=== PATIENT | female | born 1940 | race Caucasian/White ===

== ENCOUNTER 2020-01-13 11:40 | Inpatient (IN) ==
[2020-01-13] MEDS ORDERED: Triamcinolone Acet 0.1% CRM 80 GM Tube TP PRN (16:12)
[2020-01-13] MEDS ORDERED: Triamcinolone Acet 0.1% CRM 15 GM TUBE TP PRN (16:45)
[2020-01-13] MEDS: Latanoprost 2.5 ML BOTTLE BOTH EYES SCH (18:31)
[2020-01-13] MEDS: Levothyroxine 25 MCG TABLET PO SCH (20:53)
[2020-01-13] MEDS: Doxycycline 100 MG CAPSULE PO SCH (20:53)
[2020-01-13] MEDS: Ammonium Lactate 30 APPL/225 GM BOTTLE TP SCH (20:54)
[2020-01-13] MEDS: Magnesium Oxide 400 MG TABLET PO SCH (20:54)
[2020-01-14 06:32] LABS: Basophils % 0.3 %; Eosinophils # 0.3 K/mcL (0.0-0.6); Eosinophils % 5.9 %; Hematocrit 34.2 % (35.3-44.9); Hemoglobin 11.7 g/dL (11.5-15.4); Lymphocytes # 2.2 K/mcL (0.6-4.6); Mean Corpuscular HGB Conc 34.2 g/dL (31.6-35.5); Mean Corpuscular Hemoglobin 29.7 pg (28.0-33.3); Mean Corpuscular Volume 86.8 fL (83.0-100.0); Mean Platelet Volume 9.6 fL (9.4-12.4); Monocytes # 0.4 K/mcL (0.0-1.3); Monocytes % 7.3 %; Neutrophils # 2.7 K/mcL (1.6-8.9); Platelet Count 254 K/mcL (140-400); Red Blood Count 3.94 M/mcL (3.82-4.97); Red Cell Distribution Width 14.8 % (11.5-14.5); Segmented Neutrophils % 47.5 %; White Blood Count 5.7 K/mcL (4.3-11.1)
[2020-01-14 06:54] LABS: BUN/Creatinine Ratio 5 (6-26); Blood Urea Nitrogen 3 mg/dL (8-23); Calcium 8.8 mg/dL (8.6-10.3); Carbon Dioxide 29 mEq/L (23-29); Chloride 100 mEq/L (98-107); Glucose 80 mg/dL (70-105); Osmolality,Calculated 272 (280-300); Potassium 4.7 mEq/L (3.5-5.1); Sodium 133 mEq/L (136-145); eGFR For African Americans > 60 (> 60); eGFR For Non-African Americans > 60 (> 60)
[2020-01-14] MEDS ORDERED: FOLIC ACID PO SCH (09:00)
[2020-01-14] MEDS ORDERED: [UNRECOGNIZED DRUG - OTHER] PO SCH (09:00)
[2020-01-14] MEDS ORDERED: MULTIVITAMIN PO SCH (09:00)
[2020-01-14] MEDS ORDERED: BIOTIN PO SCH (09:00)
[2020-01-14] MEDS: Magnesium Oxide 400 MG TABLET PO SCH ×2 (09:53→20:45)
[2020-01-14] MEDS: levoFLOXacin 500 MG TABLET PO SCH (09:54)
[2020-01-14] MEDS: Doxycycline 100 MG CAPSULE PO SCH ×2 (09:55→20:46)
[2020-01-14] MEDS: Vitamin B Complex/Vit C/Vit E 1 EACH TABLET PO SCH (09:55)
[2020-01-14] MEDS: lisinopriL 20 MG TABLET PO SCH (09:56)
[2020-01-14] MEDS: amLODIPine 5 MG TABLET PO SCH (09:56)
[2020-01-14] MEDS: allopurinoL 300 MG TABLET PO SCH (09:56)
[2020-01-14] MEDS: Ammonium Lactate 30 APPL/225 GM BOTTLE TP SCH ×2 (10:00→20:46)
[2020-01-14] MEDS: Latanoprost 2.5 ML BOTTLE BOTH EYES SCH (17:39)
[2020-01-14] MEDS: Melatonin 3 MG TABLET PO PRN (22:38)
[2020-01-15] MEDS ORDERED: Levothyroxine 25 MCG TABLET PO SCH (06:30)
[2020-01-15] MEDS: Doxycycline 100 MG CAPSULE PO SCH ×2 (07:42→20:27)
[2020-01-15] MEDS: Vitamin B Complex/Vit C/Vit E 1 EACH TABLET PO SCH (07:42)
[2020-01-15] MEDS: levoFLOXacin 500 MG TABLET PO SCH (07:42)
[2020-01-15] MEDS: allopurinoL 300 MG TABLET PO SCH (07:43)
[2020-01-15] MEDS: amLODIPine 5 MG TABLET PO SCH (07:43)
[2020-01-15] MEDS: Magnesium Oxide 400 MG TABLET PO SCH ×2 (07:43→20:27)
[2020-01-15] MEDS: lisinopriL 20 MG TABLET PO SCH (07:43)
[2020-01-15] MEDS: Ammonium Lactate 30 APPL/225 GM BOTTLE TP SCH ×2 (07:44→20:28)
[2020-01-15] MEDS ORDERED: Artificial Tears SOLN 15 ML BOTTLE BOTH EYES PRN (14:47)
[2020-01-15] MEDS: Latanoprost 2.5 ML BOTTLE BOTH EYES SCH (17:45)
[2020-01-15] MEDS: Melatonin 3 MG TABLET PO PRN (20:27)
[2020-01-15] MEDS: Levothyroxine 25 MCG TABLET PO SCH (20:28)
[2020-01-16 06:47] LABS: Hematocrit 32.7 % (35.3-44.9); Hemoglobin 11.4 g/dL (11.5-15.4); Mean Corpuscular HGB Conc 34.9 g/dL (31.6-35.5); Mean Corpuscular Hemoglobin 29.7 pg (28.0-33.3); Mean Corpuscular Volume 85.2 fL (83.0-100.0); Mean Platelet Volume 9.3 fL (9.4-12.4); Platelet Count 243 K/mcL (140-400); Red Blood Count 3.84 M/mcL (3.82-4.97); Red Cell Distribution Width 14.6 % (11.5-14.5); White Blood Count 6.5 K/mcL (4.3-11.1)
[2020-01-16 07:13] LABS: BUN/Creatinine Ratio 14 (6-26); Blood Urea Nitrogen 10 mg/dL (8-23); Calcium 8.7 mg/dL (8.6-10.3); Carbon Dioxide 28 mEq/L (23-29); Chloride 95 mEq/L (98-107); Glucose 86 mg/dL (70-105); Osmolality,Calculated 262 (280-300); Potassium 4.5 mEq/L (3.5-5.1); Sodium 127 mEq/L (136-145); eGFR For African Americans > 60 (> 60); eGFR For Non-African Americans > 60 (> 60)
[2020-01-16] MEDS: lisinopriL 20 MG TABLET PO SCH (07:48)
[2020-01-16] MEDS: Doxycycline 100 MG CAPSULE PO SCH ×2 (07:48→21:18)
[2020-01-16] MEDS: Vitamin B Complex/Vit C/Vit E 1 EACH TABLET PO SCH (07:48)
[2020-01-16] MEDS: levoFLOXacin 500 MG TABLET PO SCH (07:48)
[2020-01-16] MEDS: Ammonium Lactate 30 APPL/225 GM BOTTLE TP SCH ×2 (07:48→21:18)
[2020-01-16] MEDS: allopurinoL 300 MG TABLET PO SCH (07:48)
[2020-01-16] MEDS: amLODIPine 5 MG TABLET PO SCH (07:48)
[2020-01-16] MEDS: Magnesium Oxide 400 MG TABLET PO SCH ×2 (07:48→21:18)
[2020-01-16] MEDS: Latanoprost 2.5 ML BOTTLE BOTH EYES SCH (18:39)
[2020-01-16] MEDS: Melatonin 3 MG TABLET PO PRN (21:18)
[2020-01-17] MEDS: lisinopriL 20 MG TABLET PO SCH (09:27)
[2020-01-17] MEDS: levoFLOXacin 500 MG TABLET PO SCH (09:27)
[2020-01-17] MEDS: amLODIPine 5 MG TABLET PO SCH (09:27)
[2020-01-17] MEDS: Magnesium Oxide 400 MG TABLET PO SCH ×2 (09:27→21:46)
[2020-01-17] MEDS: Doxycycline 100 MG CAPSULE PO SCH ×2 (09:27→21:46)
[2020-01-17] MEDS: Vitamin B Complex/Vit C/Vit E 1 EACH TABLET PO SCH (09:28)
[2020-01-17] MEDS: allopurinoL 300 MG TABLET PO SCH (09:28)
[2020-01-17] MEDS: Ammonium Lactate 30 APPL/225 GM BOTTLE TP SCH ×2 (09:33→21:46)
[2020-01-17] MEDS: Latanoprost 2.5 ML BOTTLE BOTH EYES SCH (16:49)
[2020-01-17] MEDS: Levothyroxine 25 MCG TABLET PO SCH (21:46)
[2020-01-17] MEDS: Melatonin 3 MG TABLET PO PRN (21:46)
[2020-01-18 06:58] LABS: Hematocrit 30.4 % (35.3-44.9); Hemoglobin 10.6 g/dL (11.5-15.4); Mean Corpuscular HGB Conc 34.9 g/dL (31.6-35.5); Mean Corpuscular Hemoglobin 29.9 pg (28.0-33.3); Mean Corpuscular Volume 85.6 fL (83.0-100.0); Platelet Count 240 K/mcL (140-400); Red Blood Count 3.55 M/mcL (3.82-4.97); Red Cell Distribution Width 14.7 % (11.5-14.5)
[2020-01-18 07:18] LABS: BUN/Creatinine Ratio 31 (6-26); Blood Urea Nitrogen 25 mg/dL (8-23); Calcium 8.7 mg/dL (8.6-10.3); Carbon Dioxide 30 mEq/L (23-29); Chloride 99 mEq/L (98-107); Glucose 89 mg/dL (70-105); Osmolality,Calculated 280 (280-300); Potassium 4.4 mEq/L (3.5-5.1); Sodium 133 mEq/L (136-145); eGFR For African Americans > 60 (> 60); eGFR For Non-African Americans > 60 (> 60)
[2020-01-18] MEDS: Doxycycline 100 MG CAPSULE PO SCH ×2 (09:39→20:06)
[2020-01-18] MEDS: Vitamin B Complex/Vit C/Vit E 1 EACH TABLET PO SCH (09:39)
[2020-01-18] MEDS: amLODIPine 5 MG TABLET PO SCH (09:39)
[2020-01-18] MEDS: Magnesium Oxide 400 MG TABLET PO SCH ×2 (09:39→20:07)
[2020-01-18] MEDS: lisinopriL 20 MG TABLET PO SCH (09:39)
[2020-01-18] MEDS: allopurinoL 300 MG TABLET PO SCH (09:39)
[2020-01-18] MEDS: Ammonium Lactate 30 APPL/225 GM BOTTLE TP SCH ×2 (09:40→22:00)
[2020-01-18] MEDS: Latanoprost 2.5 ML BOTTLE BOTH EYES SCH (17:07)
[2020-01-18] MEDS: 0.9 % Sodium Chloride 1,000 ML IVC SCH (18:53)
[2020-01-18] MEDS: Melatonin 3 MG TABLET PO PRN (20:07)
[2020-01-19] MEDS: 0.9 % Sodium Chloride 1,000 ML IVC SCH ×2 (02:44→08:44)
[2020-01-19] MEDS: lisinopriL 20 MG TABLET PO SCH (08:19)
[2020-01-19] MEDS: Doxycycline 100 MG CAPSULE PO SCH ×2 (08:20→23:01)
[2020-01-19] MEDS: Magnesium Oxide 400 MG TABLET PO SCH ×2 (08:20→23:01)
[2020-01-19] MEDS: Vitamin B Complex/Vit C/Vit E 1 EACH TABLET PO SCH (08:20)
[2020-01-19] MEDS: allopurinoL 300 MG TABLET PO SCH (08:21)
[2020-01-19] MEDS: amLODIPine 5 MG TABLET PO SCH (08:21)
[2020-01-19] MEDS: Ammonium Lactate 30 APPL/225 GM BOTTLE TP SCH ×2 (08:46→23:03)
[2020-01-19] MEDS: Latanoprost 2.5 ML BOTTLE BOTH EYES SCH (17:11)
[2020-01-19] MEDS: Docusate Oral Soln 100 MG/10 ML UDC PO SCH (18:39)
[2020-01-19] MEDS: Levothyroxine 25 MCG TABLET PO SCH (23:01)
[2020-01-19] MEDS: Melatonin 3 MG TABLET PO SCH (23:01)
[2020-01-20] MEDS: Magnesium Oxide 400 MG TABLET PO SCH ×2 (08:11→20:11)
[2020-01-20] MEDS: Docusate Oral Soln 100 MG/10 ML UDC PO SCH (08:11)
[2020-01-20] MEDS: Vitamin B Complex/Vit C/Vit E 1 EACH TABLET PO SCH (08:12)
[2020-01-20] MEDS: amLODIPine 5 MG TABLET PO SCH (08:12)
[2020-01-20] MEDS: Doxycycline 100 MG CAPSULE PO SCH ×2 (08:12→20:11)
[2020-01-20] MEDS: lisinopriL 20 MG TABLET PO SCH (08:12)
[2020-01-20] MEDS: allopurinoL 300 MG TABLET PO SCH (08:12)
[2020-01-20] MEDS: Ammonium Lactate 30 APPL/225 GM BOTTLE TP SCH ×2 (08:13→20:11)
[2020-01-20] MEDS: Latanoprost 2.5 ML BOTTLE BOTH EYES SCH (17:00)
[2020-01-20] MEDS: Melatonin 3 MG TABLET PO SCH (20:11)
[2020-01-21] MEDS: Vitamin B Complex/Vit C/Vit E 1 EACH TABLET PO SCH (08:08)
[2020-01-21] MEDS: Magnesium Oxide 400 MG TABLET PO SCH ×2 (08:08→20:03)
[2020-01-21] MEDS: lisinopriL 20 MG TABLET PO SCH (08:08)
[2020-01-21] MEDS: allopurinoL 300 MG TABLET PO SCH (08:08)
[2020-01-21] MEDS: amLODIPine 5 MG TABLET PO SCH (08:08)
[2020-01-21] MEDS: Docusate Oral Soln 100 MG/10 ML UDC PO SCH (08:08)
[2020-01-21] MEDS: Ammonium Lactate 30 APPL/225 GM BOTTLE TP SCH ×2 (08:08→20:03)
[2020-01-21 09:07] LABS: Basophils % 0.4 %; Eosinophils # 0.2 K/mcL (0.0-0.6); Eosinophils % 5.3 %; Hematocrit 34.4 % (35.3-44.9); Hemoglobin 11.8 g/dL (11.5-15.4); Immature Granulocytes % 0.2 % (0-4); Lymphocytes # 1.8 K/mcL (0.6-4.6); Lymphocytes % 40.9 %; Mean Corpuscular HGB Conc 34.3 g/dL (31.6-35.5); Mean Corpuscular Hemoglobin 30.1 pg (28.0-33.3); Mean Corpuscular Volume 87.8 fL (83.0-100.0); Mean Platelet Volume 9.3 fL (9.4-12.4); Monocytes # 0.4 K/mcL (0.0-1.3); Monocytes % 9.6 %; Platelet Count 288 K/mcL (140-400); Red Blood Count 3.92 M/mcL (3.82-4.97); Red Cell Distribution Width 15.2 % (11.5-14.5); Segmented Neutrophils % 43.6 %; White Blood Count 4.5 K/mcL (4.3-11.1)
[2020-01-21 09:38] LABS: BUN/Creatinine Ratio 29 (6-26); Blood Urea Nitrogen 18 mg/dL (8-23); Calcium 9.2 mg/dL (8.6-10.3); Carbon Dioxide 29 mEq/L (23-29); Chloride 99 mEq/L (98-107); Glucose 114 mg/dL (70-105); Osmolality,Calculated 281 (280-300); Potassium 4.3 mEq/L (3.5-5.1); Sodium 134 mEq/L (136-145); eGFR For African Americans > 60 (> 60); eGFR For Non-African Americans > 60 (> 60)
[2020-01-21] MEDS ORDERED: Simethicone 80 MG TAB.CHEW PO PRN (15:33)
[2020-01-21] MEDS: Latanoprost 2.5 ML BOTTLE BOTH EYES SCH (16:55)
[2020-01-21] MEDS: Melatonin 3 MG TABLET PO SCH (20:03)
[2020-01-21] MEDS: Levothyroxine 25 MCG TABLET PO SCH (22:10)
[2020-01-22] MEDS: amLODIPine 5 MG TABLET PO SCH (07:41)
[2020-01-22] MEDS: Docusate Oral Soln 100 MG/10 ML UDC PO SCH (07:41)
[2020-01-22] MEDS: Magnesium Oxide 400 MG TABLET PO SCH ×2 (07:42→20:26)
[2020-01-22] MEDS: lisinopriL 20 MG TABLET PO SCH (07:42)
[2020-01-22] MEDS: allopurinoL 300 MG TABLET PO SCH (07:42)
[2020-01-22] MEDS: Vitamin B Complex/Vit C/Vit E 1 EACH TABLET PO SCH (07:42)
[2020-01-22] MEDS: Ammonium Lactate 30 APPL/225 GM BOTTLE TP SCH ×2 (07:43→20:26)
[2020-01-22] MEDS: Latanoprost 2.5 ML BOTTLE BOTH EYES SCH (17:38)
[2020-01-22] MEDS: Melatonin 3 MG TABLET PO SCH (20:27)
[2020-01-23 07:46] VITALS: BP 118/61
[2020-01-23] MEDS: Vitamin B Complex/Vit C/Vit E 1 EACH TABLET PO SCH (07:52)
[2020-01-23] MEDS: lisinopriL 20 MG TABLET PO SCH (07:52)
[2020-01-23] MEDS: allopurinoL 300 MG TABLET PO SCH (07:52)
[2020-01-23] MEDS: Docusate Oral Soln 100 MG/10 ML UDC PO SCH (07:52)
[2020-01-23] MEDS: amLODIPine 5 MG TABLET PO SCH (07:53)
[2020-01-23] MEDS: Magnesium Oxide 400 MG TABLET PO SCH (07:53)
[2020-01-23] MEDS: Ammonium Lactate 30 APPL/225 GM BOTTLE TP SCH (07:54)
== END 2020-01-23 11:05 | disposition home health service (06) | DRG 193 ==
LOC: INPPIK 16:16
PROVIDERS: ADMIT Family Medicine; ATTEND Family Medicine